=== PATIENT | female | born 1995 | race African-American/Black ===

== ENCOUNTER 2017-12-24 19:02 | Emergency (ER) | payer BC, MEDICAID, OTHER ==
[~2017-12-24] VITALS: Ht 165.1 cm; Wt 61.0 kg
[2017-12-24] MEDS ORDERED: MORPHINE SULFATE 4 MG/ML, 1ML ONE (19:24)
[2017-12-24] MEDS ORDERED: MORPHINE SULFATE 4 MG/ML, 1ML IVPush PRN (19:30)
[2017-12-24] MEDS ORDERED: SODIUM CHLORIDE FLUSH 10ML SYR IVF ONE (19:30)
[2017-12-24 19:37] LABS: BASOPHILS # (AUTO) 0.03 x10^3/uL (0-0.1); BASOPHILS % (AUTO) 1 % (0-1); EOSINOPHILS # (AUTO) 0.06 x10^3/uL (0-0.4); EOSINOPHILS % (AUTO) 1 % (1-7); LYMPHOCYTES # (AUTO) 2.49 x10^3/uL (1-3.4); LYMPHOCYTES % (AUTO) 43 % (22-44); MD NO; MEAN CORPUSCULAR HEMOGLOBIN 31.5 pg (27.0-34.8); MEAN CORPUSCULAR HGB CONC 33.7 g/dL (32.4-35.8); MEAN CORPUSCULAR VOLUME 93.4 fL (80-100); MEAN PLATELET VOLUME 8.5 fL (7.4-10.4); MONOCYTES # (AUTO) 0.45 x10^3/uL (0.2-0.8); MONOCYTES % (AUTO) 8 % (2-9); NEUTROPHILS # (AUTO) 2.75 x10^3/uL (1.8-6.8); NEUTROPHILS % (AUTO) 48 % (42-75); PLATELET COUNT 215 x10^3/uL (130-400); RED BLOOD COUNT 4.07 x10^6/uL (3.82-5.3)
[2017-12-24 19:44] LABS: ALANINE AMINOTRANSFERASE 26 U/L (12-78); ALBUMIN 3.3 g/dL (3.4-5.0); ANION GAP 5 mmol/L (5-15); CALCIUM 7.8 mg/dL (8.5-10.1); CHLORIDE 108 mmol/L (98-107); CREATININE 0.59 mg/dL (0.55-1.02)
[2017-12-24 20:01] LABS: ALKALINE PHOSPHATASE 56 U/L (45-117); BILIRUBIN,TOTAL 0.2 mg/dL (0.2-1.0); TOTAL PROTEIN 6.2 g/dL (6.4-8.2)
[2017-12-24 20:36] LABS: MICROSCOPIC INDICATED
[2017-12-24 20:52] LABS: CULTURE INDICATED? NO
[2017-12-24 20:58] VITALS: BP 122/58
== END 2017-12-24 21:17 | disposition home or self-care (01) ==
LOC: ED 21:00
DX: O26.891 Other specified pregnancy related conditions, first trimester (principal)
CPT/HCPCS: 36415; 76830; 80053; 81001; 84702; 84703; 85025; 96374

== ENCOUNTER 2017-12-25 00:09 | Observation (INO) | payer BC, MEDICAID, OTHER ==
[~2017-12-25] VITALS: Ht 154.9 cm; Wt 60.0 kg
[2017-12-25 01:54] LABS: BASOPHILS # (AUTO) 0.03 x10^3/uL (0-0.1); BASOPHILS % (AUTO) 0 % (0-1); EOSINOPHILS # (AUTO) 0.01 x10^3/uL (0-0.4); EOSINOPHILS % (AUTO) 0 % (1-7); LYMPHOCYTES # (AUTO) 1.71 x10^3/uL (1-3.4); LYMPHOCYTES % (AUTO) 22 % (22-44); MD NO; MEAN CORPUSCULAR HEMOGLOBIN 31.8 pg (27.0-34.8); MEAN CORPUSCULAR HGB CONC 34.5 g/dL (32.4-35.8); MEAN CORPUSCULAR VOLUME 92.3 fL (80-100); MEAN PLATELET VOLUME 8.6 fL (7.4-10.4); MONOCYTES # (AUTO) 0.44 x10^3/uL (0.2-0.8); MONOCYTES % (AUTO) 6 % (2-9); NEUTROPHILS # (AUTO) 5.46 x10^3/uL (1.8-6.8); NEUTROPHILS % (AUTO) 71 % (42-75); PLATELET COUNT 219 x10^3/uL (130-400); RED BLOOD COUNT 3.88 x10^6/uL (3.82-5.3); RED CELL DISTRIBUTION WIDTH 12.6 % (9.6-15.2)
[2017-12-25 01:59] LABS: ALBUMIN 3.3 g/dL (3.4-5.0); ANION GAP 2 mmol/L (5-15); CALCIUM 8.4 mg/dL (8.5-10.1); CHLORIDE 108 mmol/L (98-107)
[2017-12-25 02:00] LABS: CREATININE 0.65 mg/dL (0.55-1.02)
[2017-12-25 02:03] LABS: INTERNATIONAL NORMALIZED RATIO 1.03 (0.93-1.1); PROTHROMBIN TIME 10.6 Seconds (9.6-11.5)
[2017-12-25] MEDS ORDERED: ONDANSETRON 2MG/ML, 2ML IVPush ONE (03:00)
[2017-12-25] MEDS ORDERED: SODIUM CHLORIDE FLUSH 10ML SYR IVF ONE (03:00)
[2017-12-25] MEDS ORDERED: MORPHINE SULFATE 4 MG/ML, 1ML IVPush PRN (03:00)
[2017-12-25] MEDS ORDERED: MORPHINE SULFATE 4 MG/ML, 1ML ONE (03:05)
[2017-12-25] MEDS ORDERED: ONDANSETRON ODT 4 MG ONE (03:08)
[2017-12-25] MEDS ORDERED: SODIUM CHLORIDE 0.9% 1,000 ML IV ONE (03:09)
[2017-12-25] MEDS ORDERED: ONDANSETRON ODT 4 MG PO ONE (03:30)
[2017-12-25] MEDS ORDERED: HYDROmorphone 1 MG/ML, 1ML IVPush PRN (03:30)
[2017-12-25] MEDS ORDERED: SODIUM CHLORIDE FLUSH 10ML SYR IVF PRN (03:30)
[2017-12-25] MEDS ORDERED: MISOPROSTOL 200 MCG TABLET ONE (03:38)
[2017-12-25] MEDS ORDERED: METHYLERGONOVINE 0.2 MG/ML IM ONE (03:39)
[2017-12-25] MEDS ORDERED: OXYTOCIN 10 UNITS/ML, 1ML ONE (03:39)
[2017-12-25] MEDS ORDERED: BUPIVACAINE/PF-EPI 0.25% 1:200K ONE (03:40)
[2017-12-25] MEDS ORDERED: FENTANYL PF 100 MCG/2ML ONE ×2 (03:57→05:19)
[2017-12-25] MEDS ORDERED: KETOROLAC 30 MG/1 ML ONE (04:02)
[2017-12-25] MEDS ORDERED: MIDAZOLAM 1 MG/ML, 2ML IV PRN (04:30)
[2017-12-25] MEDS ORDERED: EPHEDRINE 50 MG/ML, 1ML IM PRN (04:30)
[2017-12-25] MEDS ORDERED: SCOPOLAMINE PATCH, 1.5MG PATCH.TD72 TD PRN (04:30)
[2017-12-25] MEDS ORDERED: MEPERIDINE/PF 25MG/0.5ML IVPush PRN (04:30)
[2017-12-25] MEDS ORDERED: FENTANYL PF 100 MCG/2ML IV PRN (04:30)
[2017-12-25] MEDS ORDERED: ACETAMINOPHEN 325 MG TABLET PO PRN ×2 (04:30→05:30)
[2017-12-25] MEDS ORDERED: OXYcodone 5 MG/5 ML ORAL.SOL UDC PO PRN (04:30)
[2017-12-25] MEDS ORDERED: ALBUTEROL/IPRATROPIUM 2.5MG/0.5MG, 3 ML NPPB PRN (04:30)
[2017-12-25] MEDS ORDERED: PROMETHAZINE 25 MG/ML, 1ML IV PRN (04:30)
[2017-12-25] MEDS ORDERED: HYDROmorphone 1 MG/ML, 1ML IV PRN (04:30)
[2017-12-25] MEDS ORDERED: LABETALOL 5MG/ML, 20ML IV PRN (04:30)
[2017-12-25] MEDS ORDERED: ONDANSETRON ODT 8 MG PO PRN (04:30)
[2017-12-25] MEDS ORDERED: BUPIVACAINE/PF-EPI 0.25% 1:200K INFIL ONE (04:45)
[2017-12-25] MEDS ORDERED: PROPOFOL 10 MG/ML, 20ML ONE (05:19)
[2017-12-25] MEDS ORDERED: ROCURONIUM 10MG/ML,5ML ONE (05:19)
[2017-12-25] MEDS ORDERED: CEFAZOLIN 1,000 MG ONE (05:19)
[2017-12-25] MEDS ORDERED: GLYCOPYRROLATE 0.2MG/1ML, 5ML ONE (05:19)
[2017-12-25] MEDS ORDERED: SUCCINYLCHOLINE 20 MG/ML, 10ML ONE (05:19)
[2017-12-25] MEDS ORDERED: DEXAMETHASONE 4 MG/ML, 1ML ONE (05:19)
[2017-12-25] MEDS ORDERED: NEOSTIGMINE 1 MG/ML, 10ML ONE (05:19)
[2017-12-25] MEDS ORDERED: HYDROmorphone 2 MG/ML, 1ML IVPush PRN (05:30)
[2017-12-25] MEDS ORDERED: CEFAZOLIN PMX 1GM/50ML 50 ML IVPB SCH (05:30)
[2017-12-25 07:09] LABS: MEAN CORPUSCULAR HEMOGLOBIN 31.2 pg (27.0-34.8); MEAN CORPUSCULAR HGB CONC 33.8 g/dL (32.4-35.8); MEAN CORPUSCULAR VOLUME 92.1 fL (80-100); MEAN PLATELET VOLUME 8.3 fL (7.4-10.4); PLATELET COUNT 219 x10^3/uL (130-400); RED BLOOD COUNT 3.69 x10^6/uL (3.82-5.3); RED CELL DISTRIBUTION WIDTH 12.7 % (9.6-15.2)
[2017-12-25 07:17] LABS: BILIRUBIN,TOTAL 0.4 mg/dL (0.2-1.0)
[2017-12-25 07:38] VITALS: BP 87/50
[2017-12-25 07:40] LABS: MD YES
[2017-12-25] MEDS: IBUPROFEN 600 MG TABLET PO SCH ×4 (07:41→18:49)
[2017-12-25] MEDS: DOCUSATE 100 MG CAPSULE PO SCH ×2 (07:41→20:40)
[2017-12-25 07:42] LABS: BAND#(MANUAL) 0.29 x10^3/uL; BANDS%(MANUAL) 3 % (0-7); LYMPH#(MANUAL) 0.69 x10^3/uL (1-3.4); LYMPHS% (MANUAL) 7 % (22-44); MONOS% (MANUAL) 1 % (2-9); SEG#(MANUAL) 8.72 x10^3/uL (1.8-6.8); SEGS% (MANUAL) 89 % (42-75)
[2017-12-25 07:43] LABS: <PLATELET ESTIMATE> ADEQUATE; <PLT MORPHOLOGY> NORMAL PLT MORPH; <RBC MORPHOLOGY> NORMAL
[2017-12-25] MEDS: D5%-LACTATED RINGERS 1,000 ML IV SCH ×2 (12:16→16:48)
[2017-12-25 14:30] VITALS: BP 100/51
[2017-12-25] MEDS: OXYcodone/APAP 5/325MG TABLET PO PRN ×3 (15:14→21:32)
[2017-12-25] MEDS ORDERED: ONDANSETRON ODT 4 MG PO PRN (18:30)
[2017-12-25 21:01] VITALS: BP 108/65
[2017-12-26 00:23] VITALS: BP 119/54
[2017-12-26 04:48] VITALS: BP 92/42
[2017-12-26] MEDS: OXYcodone/APAP 5/325MG TABLET PO PRN ×3 (05:04→12:09)
[2017-12-26] MEDS: IBUPROFEN 600 MG TABLET PO SCH ×2 (06:55→12:09)
[2017-12-26 07:21] VITALS: BP 100/64
[2017-12-26] MEDS: DOCUSATE 100 MG CAPSULE PO SCH (09:43)
[2017-12-26] MEDS ORDERED: OXYC-302 PO (10:10)
[2017-12-26] MEDS ORDERED: IBUP-1222 PO (10:10)
[2017-12-26] MEDS ORDERED: ONDA4TAB7 PO ×2 (10:11)
[2017-12-26] MEDS: D5%-LACTATED RINGERS 1,000 ML IV SCH ×2 (10:59)
[2017-12-26 12:30] VITALS: BP 100/58
[2017-12-26 12:35] VITALS: BP 106/57
== END 2017-12-26 13:40 | disposition home or self-care (01) ==
LOC: ED 01:40 → EDIP 03:09 → INTOOBSV 03:09 → 4NOR 06:25
PROVIDERS: ADMIT Obstetrics & Gynecology; ATTEND Obstetrics & Gynecology
DX: O00.102 Left tubal pregnancy without intrauterine pregnancy (principal); N83.292 Other ovarian cyst, left side; K66.1 Hemoperitoneum
CPT/HCPCS: 36415; 49322; 59150; 76801; 80048; 82040; 82247; 84450; 84702; 85014; 85018; 85025; 85610; 85730; 86850; 86900; 88305; 96374; 96375; 99291; G0378; J0330; J0690; J1100; J1170; J1885; J2704; J2710; J3010; J3490; J7030; Q0162; 36430; J2210; J2590

== ENCOUNTER → 2019-03-05 | Emergency (ER) | payer OTHER ==
[~2019-03-05] VITALS: Ht 154.9 cm; Wt 56.5 kg
[~2019-03-05] MED LIST: IBUP-1222 PO; ONDA4TAB7 PO; OXYC-302 PO
[2019-03-05 10:09] VITALS: BP 123/58
[2019-03-05 11:06] LABS: BASOPHILS # (AUTO) 0.02 x10^3/uL (0-0.1); BASOPHILS % (AUTO) 1 % (0-1); EOSINOPHILS # (AUTO) 0.03 x10^3/uL (0-0.4); EOSINOPHILS % (AUTO) 1 % (1-7); LYMPHOCYTES # (AUTO) 1.18 x10^3/uL (1-3.4); LYMPHOCYTES % (AUTO) 40 % (22-44); MD NO; MEAN CORPUSCULAR HEMOGLOBIN 31.6 pg (27.0-34.8); MEAN CORPUSCULAR HGB CONC 33.7 g/dL (32.4-35.8); MEAN PLATELET VOLUME 8.4 fL (7.4-10.4); MONOCYTES # (AUTO) 0.41 x10^3/uL (0.2-0.8); MONOCYTES % (AUTO) 14 % (2-9); NEUTROPHILS # (AUTO) 1.31 x10^3/uL (1.8-6.8); NEUTROPHILS % (AUTO) 44 % (42-75); PLATELET COUNT 206 x10^3/uL (130-400); RED BLOOD COUNT 4.42 x10^6/uL (3.82-5.3); RED CELL DISTRIBUTION WIDTH 13.4 % (9.6-15.2)
[2019-03-05 11:16] LABS: ALBUMIN 3.7 g/dL (3.4-5.0); ANION GAP 2 mmol/L (5-15); CALCIUM 8.2 mg/dL (8.5-10.1); CHLORIDE 111 mmol/L (98-107)
[2019-03-05 11:21] LABS: CREATININE 0.64 mg/dL (0.55-1.02)
--- NOTE | 2019-03-05 12:25 | NUR ---
NOT IN [facility]BY
--- NOTE | 2019-03-05 12:40 | NUR ---
NOT IN [facility]BY
== END ==
LOC: ED 12:56
DX: R10.31 Right lower quadrant pain (principal)
CPT/HCPCS: 36415; 80048; 82040; 84703; 85025; 99283